=== PATIENT | female | born 1985 | race Caucasian/White ===

== ENCOUNTER → 2019-02-22 | Outpatient (CLI) | payer OTHER | LOC: LAB 16:10 | PROVIDERS: ATTEND Family Medicine | DX: O09.899 Supervision of other high risk pregnancies, unspecified trimester (principal) | CPT/HCPCS: 36415; 84144; 84702 ==

== ENCOUNTER → 2019-03-08 | Outpatient (CLI) | payer OTHER | LOC: LAB 16:38 | PROVIDERS: ATTEND Family Medicine | DX: O09.90 Supervision of high risk pregnancy, unspecified, unspecified trimester (principal) | CPT/HCPCS: 36415; 84144 ==

== ENCOUNTER → 2022-05-14 | Outpatient (CLI) | payer OTHER ==
--- NOTE | 2022-05-14 11:16 | Diagnostic Imaging Report ---
PROCEDURE: US OB SINGLE FETUS <14 WKS. TECHNIQUE: Multiple real-time grayscale images were obtained over the gravid uterus in various projections. INDICATION: Vaginal spotting. There is a single live IUP approximately 12 weeks 2 days gestational age. Heart rate was recorded at 161 bpm. Placenta is developing posteriorly. No jose elias-gestational sac hemorrhage is detected. There is a questionable fibroid versus a uterine contraction in the anterior uterus. Adnexa were not evaluated. IMPRESSION: Single live IUP 12 weeks 2 days gestational age with estimated date of confinement sonographically of 11/24/2022. No definite complicating features are detected. Dictated by: Dictated on workstation # [id number]
== END ==
LOC: RAD 10:00
DX: O20.9 Hemorrhage in early pregnancy, unspecified (principal); O09.211 Supervision of pregnancy with history of pre-term labor, first trimester; O09.291 Supervision of pregnancy with other poor reproductive or obstetric history, first trimester; Z98.890 Other specified postprocedural states; Z3A.12 12 weeks gestation of pregnancy
CPT/HCPCS: 76801